=== PATIENT | female | born 1965 | race Caucasian/White ===

== ENCOUNTER 2017-09-25 07:04 | Emergency (ER) | payer OTHER ==
[2017-09-25 07:33] LABS: Bacteria/HPF Rare-Few HPF (None Seen); Bilirubin Negative (Negative); Blood, Urine Trace (Negative); Clarity Slightly Cloudy (Clear); Glucose, Urine (Dipstick) Negative (Negative); Hyaline Casts/LPF NONE SEEN LPF (0-3 Hyaline); Leukocyte Negative (Negative); Nitrite Negative (Negative); Protein, Urine (Dipstick) Negative (Neg-Trace); RBC/HPF 0-3 HPF (0-3); Squamous Epithelial 0-3 HPF (0-3); Urobilinogen 0.2 mg/dL (0.2-1.0); WBC/HPF 0-3 HPF (0-3)
--- NOTE | 2017-09-25 08:41 | ULT ---
ULTRASOUND RETROPERITONEUM COMPLETE: (RENAL) HISTORY: 52-year-old female with urinary tract infection, now with right flank pain. FINDINGS: Right kidney: 12.5 x 7 x 7 cm. Left kidney: 12.5 x 6.5 x 5.5 cm. There is a 3 cm cyst at the right upper-mid pole. There is a 2 cm cyst at the right lower pole. There is no hydronephrosis bilaterally. Urinary bladder volume is 100 mL pre-void, and 1 mL post-void. The bladder appears unremarkable. IMPRESSION: 1. No hydronephrosis. 2. Two right-sided renal cysts. 3. If there is concern for pyelonephritis, CT of the abdomen with contrast, or MRI of the abdomen wi th and without contrast, would be the most sensitive modalities (assuming there are no contraindicati ons). LEONELA Renee POS: CHAKA
[2017-09-25] MEDS ORDERED: Ketorolac Tromethamine 30 MG/ML VIAL ONE (08:46)
== END 2017-09-25 09:04 | disposition home or self-care (01) ==
LOC: SCSER 07:04
DX: S29.011A Strain of muscle and tendon of front wall of thorax, initial encounter (principal); Z87.442 Personal history of urinary calculi; Z79.899 Other long term (current) drug therapy; X58.XXXA Exposure to other specified factors, initial encounter
CPT/HCPCS: 76770; 81003; 81015; 96372; J1885

== ENCOUNTER 2018-09-06 14:07 | Outpatient (CLI) | payer OTHER | END 2018-09-06 14:08 | disposition home or self-care (01) | LOC: BICMAMMO 14:07 | PROVIDERS: ATTEND Internal Medicine | DX: Z12.31 Encounter for screening mammogram for malignant neoplasm of breast (principal); N63.10 Unspecified lump in the right breast, unspecified quadrant | CPT/HCPCS: 77063; 77067 ==

== ENCOUNTER 2018-09-11 13:01 | Outpatient (CLI) | payer OTHER ==
--- NOTE | 2018-09-11 14:45 | ULT ---
RIGHT BREAST ULTRASOUND: HISTORY: Abnormal mammogram. FINDINGS: Correlation is made with mammograms of today and 09/06/2018. The small focal nodular density noted on the initial mammogram is vaguely seen on the initial images today and likely corresponds to a 4 mm cyst at the 6 o'clock position of the right retroareolar breas t. IMPRESSION: BIRADS category 2 - benign findings. Return to annual mammographic screening. POS: OFF
== END 2018-09-11 13:02 | disposition home or self-care (01) ==
LOC: BICMAMMO 13:01
PROVIDERS: ATTEND Internal Medicine
DX: N63.14 Unspecified lump in the right breast, lower inner quadrant (principal)
CPT/HCPCS: G0279

== ENCOUNTER 2018-10-01 08:40 | Outpatient (CLI) | payer OTHER | END 2018-10-01 08:41 | disposition home or self-care (01) | LOC: DTY/OP 08:40 | PROVIDERS: ATTEND Surgery | DX: E66.01 Morbid (severe) obesity due to excess calories (principal) | CPT/HCPCS: 97802 ==

== ENCOUNTER 2018-10-24 13:40 | Outpatient (CLI) | payer OTHER | END 2018-10-24 13:41 | disposition home or self-care (01) | LOC: DTY/OP 13:40 | PROVIDERS: ATTEND Internal Medicine | DX: E66.01 Morbid (severe) obesity due to excess calories (principal) | CPT/HCPCS: 97802 ==

== ENCOUNTER 2018-11-29 14:56 | Outpatient (CLI) | payer OTHER | END 2018-11-29 14:57 | disposition home or self-care (01) | LOC: DTY/OP 14:56 | PROVIDERS: ATTEND Internal Medicine | DX: E66.01 Morbid (severe) obesity due to excess calories (principal) | CPT/HCPCS: 97802 ==

== ENCOUNTER 2019-01-17 15:38 | Outpatient (CLI) | payer OTHER | END 2019-01-17 15:39 | disposition home or self-care (01) | LOC: DTY/OP 15:38 | PROVIDERS: ATTEND Internal Medicine | DX: E66.01 Morbid (severe) obesity due to excess calories (principal) | CPT/HCPCS: 97802 ==

== ENCOUNTER 2019-02-19 09:51 | Outpatient (CLI) | payer OTHER ==
[2019-02-19 10:58] LABS: #Eosinphils 0.1 thou/uL (0.0-0.7); #Lymphocytes 1.9 thou/uL (1.20-3.40); #Monocytes 0.5 thou/uL (0.11-0.59); #Neutrophils 4.5 thou/uL (1.40-6.50); %Basophils 0.5 % (0.0-1.0); %Eosinophils 2.1 % (0.0-10.0); %Lymphocytes 26.7 % (21.0-51.0); %Neutrophils 63.6 % (42.0-75.0); Hemoglobin 13.9 g/dL (12.0-16.0); Mean Corpuscular HGB CONC 33.3 g/dL (32.0-36.0); Mean Corpuscular Hemoglobin 30.2 pg (27.0-31.0); Mean Corpuscular Volume 90.7 fL (78.0-98.0); Mean Platelet Volume 7.8 fL (7.4-10.4); Platelet Count 345 thou/uL (130-400); RBC Distribution Width 11.7 % (11.5-14.5); Red Blood Cell (RBC) Count 4.59 mill/uL (4.20-5.40); White Blood Cell (WBC) Count 7.1 thou/uL (4.8-10.8)
[2019-02-19 11:05] LABS: BHCG - Serum Negative (NEGATIVE); Pregs Control Background? CLEAR/WHITE (CLR/WHITE); Pregs Control Bar Appear? YES (CONTROL BAR)
[2019-02-19 11:14] LABS: Hemoglobin A1c 5.9 % (4.0-6.0)
[2019-02-19 11:22] LABS: ALT (SGPT) 51 U/L (8-55); AST (SGOT) 36 U/L (5-34); Albumin 4.5 g/dL (3.5-5.0); Alkaline Phosphatase 73 U/L (40-150); Anion Gap 12 mmol/L (10-20); BUN (Urea Nitrogen) 25 mg/dL (9.8-20.1); Bilirubin, Direct 0.3 mg/dL (0.1-0.3); Bilirubin, Total 0.7 mg/dL (0.2-1.2); Calc. Creatinine Clearance 0 mL/min (70-130); Calcium 9.6 mg/dL (7.8-10.44); Carbon Dioxide 22 mmol/L (22-29); Chloride 107 mmol/L (98-107); Estimated GFR-MDRD 83; Globulin 3.1 g/dL (2.4-3.5); Glucose 101 mg/dL (70-105); Potassium 4.1 mmol/L (3.5-5.1); Protein, Total 7.6 g/dL (6.0-8.3); Sodium 137 mmol/L (136-145)
--- NOTE | 2019-02-19 11:58 | RAD ---
2 VIEWS CHEST: Date: 02/19/19 PROVIDED CLINICAL HISTORY: Preop. FINDINGS: Cardiac and mediastinal silhouette is within normal limits. Lungs appear clear. No pleural fluid or p neumothorax apparent. IMPRESSION: No evidence for acute cardiopulmonary process. POS: OFF
== END 2019-02-19 09:52 | disposition home or self-care (01) ==
LOC: LABBT 09:51
PROVIDERS: ATTEND Surgery
DX: Z01.818 Encounter for other preprocedural examination (principal); E66.01 Morbid (severe) obesity due to excess calories
CPT/HCPCS: 71046; 80053; 80076; 83036; 84703; 85025

== ENCOUNTER 2019-02-19 14:00 | Inpatient (IN) | payer OTHER ==
[2019-02-28] MEDS ORDERED: Heparin 5,000 UNITS/ML VIAL ONE (07:42)
[2019-02-28] MEDS ORDERED: Bupivacaine/Epinephrine 0.25% 30 ML VIAL ONE (09:14)
[2019-02-28] MEDS ORDERED: Fentanyl 100 MCG/2 ML VIAL ONE ×4 (09:22→11:35)
[2019-02-28] MEDS ORDERED: Lidocaine 2% Jelly 5 ML TUBE ONE (09:22)
[2019-02-28] MEDS ORDERED: Promethazine HCl 25 MG/ML VIAL SLOW IVP PRN (10:46)
[2019-02-28] MEDS ORDERED: Promethazine HCl 25 MG/ML VIAL IM PRN ×3 (10:46→13:06)
[2019-02-28] MEDS ORDERED: Ondansetron HCl/PF 4 MG/2 ML Vial IVP PRN (10:46)
--- NOTE | 2019-02-28 11:34 | OP ---
DATE OF PROCEDURE: 02/28/2019 PREOPERATIVE DIAGNOSES: 1. Morbid obesity with a body mass index of 38. 2. Hypertension. POSTOPERATIVE DIAGNOSES: 1. Morbid obesity with a body mass index of 38. 2. Hypertension. 3. Hiatal hernia, paraesophageal. PROCEDURE PERFORMED: 1. Laparoscopic sleeve gastrectomy with [place] staple line reinforcements and 38-[place] bougie. 2. Laparoscopic repair of paraesophageal hernia without fundoplication. ANESTHESIA: General. ESTIMATED BLOOD LOSS: Minimal. COMPLICATIONS: None. FINDINGS: Hiatal hernia. DESCRIPTION OF PROCEDURE: The patient was taken to the operating room and laid supine on the operating room table. After general anesthetic was obtained, an OG tube was used to decompress the stomach. The arms and legs were double strapped to bariatric table. The abdomen was prepped and draped in the sterile fashion. Left subcostal 5 mm Optiview trocar was placed in the usual fashion. High-flow pneumoperitoneum was obtained. Left and right abdominal 12 mm ports as well as right subcostal 5 mm port were placed under direct visualization. A 5 mm incision was made at the xiphoid, and Merry was used to raise the liver off the GE junction. Short gastrics were taken down from mid body of the stomach to left [place] of diaphragm. Left [place] posterior fundus and angle of His were completely dissected revealing a paraesophageal hernia. Circumferential dissection of the esophagus was performed. The gastrohepatic ligament was opened. Short gastrics were taken down to a distance of 6 cm proximal to the pylorus. OG tube was removed and 38 bougie was brought in and its tip left in the antrum of the stomach. Multiple loads of an [place] stapling device were used to perform the sleeve. The first was a green load fired up at a distance of 6 cm proximal to the pylorus angled up towards the incisura. Care was taken to avoid being too close to the incisura. Multiple loads were then fired up along the bougie. Stomach was completely transected at the angle of His. The stomach was removed from the left abdominal incision. This fascial defect was closed using GraNee needle and 0 Vicryl tie. One Ethibond suture in tie knot system was used to close the posterior crura with the bougie present. Bougie was removed. There was no bleeding on the staple line. EGD scope was passed through the esophagus and stomach to the level of duodenum without obstruction. No stricture at the incisura. There was no stenosis at the diaphragmatic hiatus. Merry retractors removed under direct visualization without bleeding. All ports were removed without bleeding. Pneumoperitoneum was let down. Vicryl was used to close the fascial defect from the left abdominal incisions. All incisions were irrigated and closed using 4-0 Monocryl and Dermabond. The patient was sent to Recovery in stable condition. All instrument counts, needle counts, and lap counts were correct. Job ID: [id number]
[2019-02-28] MEDS ORDERED: HYDROmorphone 2 MG/ML VIAL ONE (11:44)
[2019-02-28] MEDS ORDERED: HYDROmorphone 2 MG/ML VIAL SLOW IVP PRN (11:48)
[2019-02-28] MEDS ORDERED: Zolpidem Tartrate 5 MG TAB PO PRN (11:49)
[2019-02-28] MEDS ORDERED: Fentanyl 20 mcg/ml (100 ml CADD) IV PRN (11:49)
[2019-02-28] MEDS ORDERED: fentaNYL Citrate/PF 2,000 MCG in Sodium Chloride 0.9% 60 ML IV PRN (11:49)
[2019-02-28] MEDS ORDERED: Ondansetron PF 4 MG/2 ML Vial IVP PRN ×2 (11:49→13:06)
[2019-02-28] MEDS ORDERED: diphenhydrAMINE 50 MG/ML VIAL IM PRN (11:49)
[2019-02-28] MEDS ORDERED: diphenhydrAMINE 25 MG CAP PO PRN (11:49)
[2019-02-28] MEDS ORDERED: diphenhydrAMINE 50 MG/ML VIAL IVP PRN ×2 (11:49→13:06)
[2019-02-28] MEDS ORDERED: Naloxone HCl 0.4 mg/ml Vial IV PRN (11:49)
[2019-02-28] MEDS ORDERED: Promethazine HCl 25 MG/ML VIAL ONE (11:53)
[2019-02-28] MEDS ORDERED: Communication Order-Pharmacy FS SCH (12:00)
[2019-02-28] MEDS ORDERED: hydrALAZINE 20 MG/ML VIAL SLOW IVP PRN (13:06)
[2019-02-28] MEDS ORDERED: Hydrocodone-Acetamin 15 ML UDCUP PO PRN (13:06)
[2019-02-28] MEDS ORDERED: Dextrose 50% Abboject 50 ML SYRINGE SLOW IVP PRN (13:06)
[2019-02-28] MEDS ORDERED: Dextrose 5% in Water 1,000 ML IV PRN (13:06)
[2019-02-28] MEDS: D5 1/2 NS w/20 mEq KCL 1,000 ML IV SCH ×2 (13:36→20:09)
[2019-02-28] MEDS: Acetaminophen 1,000 MG in Premix Bag 1 BAG IVPB SCH ×2 (13:37→20:02)
[2019-02-28] MEDS ORDERED: Enoxaparin Sodium 40 MG/0.4 ML SYRINGE SC SCH (21:00)
[2019-03-01] MEDS: Acetaminophen 1,000 MG in Premix Bag 1 BAG IVPB SCH ×2 (02:32→08:00)
[2019-03-01 05:14] LABS: #Lymphocytes 1.4 thou/uL (1.20-3.40); #Monocytes 0.5 thou/uL (0.11-0.59); #Neutrophils 9.2 thou/uL (1.40-6.50); %Basophils 0.3 % (0.0-1.0); %Lymphocytes 12.6 % (21.0-51.0); %Monocytes 4.5 % (0.0-10.0); %Neutrophils 82.6 % (42.0-75.0); Hemoglobin 12.7 g/dL (12.0-16.0); Mean Corpuscular HGB CONC 31.2 g/dL (32.0-36.0); Mean Corpuscular Hemoglobin 28.8 pg (27.0-31.0); Mean Corpuscular Volume 92.3 fL (78.0-98.0); Mean Platelet Volume 8.3 fL (7.4-10.4); Platelet Count 287 thou/uL (130-400); RBC Distribution Width 11.6 % (11.5-14.5); White Blood Cell (WBC) Count 11.1 thou/uL (4.8-10.8)
[2019-03-01] MEDS: D5 1/2 NS w/20 mEq KCL 1,000 ML IV SCH (05:26)
[2019-03-01 05:36] LABS: Anion Gap 9 mmol/L (10-20); BUN (Urea Nitrogen) 8 mg/dL (9.8-20.1); Calc. Creatinine Clearance 0 mL/min (70-130); Calcium 9.2 mg/dL (7.8-10.44); Carbon Dioxide 23 mmol/L (22-29); Chloride 107 mmol/L (98-107); Estimated GFR-MDRD Greater than 90; Glucose 158 mg/dL (70-105); Potassium 4.1 mmol/L (3.5-5.1); Sodium 135 mmol/L (136-145)
--- NOTE | 2019-03-01 07:56 | PDOC.GSPN ---
Surgery Progress Note: Subj - Subjective Patient reports: no new complaints, pain well controlled (Currently is 10/28. Pain has shifted from incisional to a band-like sore abdominal pain. Overall, is well controlled. 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 Otherwise, IV tylenol controls the pain.), tolerating liquids well ( She had four cups of broth and some jello overnight and tolerated it well.), voiding w/o difficulty (Urinated several times throughout the night.), no bowel movement, no flatus Surgery Progress Note: Obj - Vital signs Vital signs: Vital Signs - Most Recent Temp Pulse Resp BP Pulse Ox 98.6 F 86 18 134/69 93 L 03/01/19 04:33 03/01/19 04:33 03/01/19 04:33 03/01/19 04:33 03/01/19 04:33 - Physical Exam General: no distress, well nourished Cardiovascular: regular rate and rhythm Respiratory: clear to auscultation, normal expansion, normal respiratory effort , breath sounds present Abdomen: soft, decreased bowel sounds, appropriately tender Wound: dressing clean,dry,intact (Laparascopic incisions are not indurated or warm and appear to be healing well.), healing well Surgery Progress Note: Results - Labs Result Diagrams: 03/01/19 04:47 03/01/19 04:47 Lab results: Laboratory Results - last 24 hr 03/01/19 03/01/19 04:47 04:47 WBC 11.1 H RBC 4.40 Hgb 12.7 Hct 40.7 MCV 92.3 MCH 28.8 MCHC 31.2 L RDW 11.6 Plt Count 287 MPV 8.3 Neutrophils % 82.6 H Lymphocytes % 12.6 L Monocytes % 4.5 Eosinophils % 0.0 Basophils % 0.3 Neutrophils # 9.2 H Lymphocytes # 1.4 Monocytes # 0.5 Eosinophils # 0.0 Basophils # 0.0 Sodium 135 L Potassium 4.1 Chloride 107 Carbon Dioxide 23 Anion Gap 9 L BUN 8 L Creatinine 0.68 Estimated GFR (MDRD) Greater than 90 Glucose 158 H Calcium 9.2 Surgery Progress Note: A/P - Plan Plan: Patient is post-op day 1 for a laparascopic sleeve gastrectomy. Her pain is well controlled with a WINDOWS [employer]STRUCTURE ENGINEER and IV tylenol. She is ambulating with no hoang, and has voided several times through the night. No bowel movement or flatus yet, but she is tolerating clear liquids well. Plan- 1. Advance to full liquid diet this pm if patient continues to tolerate clear liquids. 2. Wean off of the WINDOWS INFRASTRUCTURE ENGINEER in favor of IV tylenol when patient is able to ambulate without the need for the WINDOWS INFRASTRUCTURE ENGINEER.
[2019-03-01] MEDS ORDERED: Pantoprazole 40 MG VIAL IVP SCH (09:00)
[2019-03-01] MEDS ORDERED: Losartan 25 MG TAB PO SCH (09:00)
[2019-03-01] MEDS ORDERED: Hydrocodone-Acetamin 15 ML UDCUP PO PRN (11:02)
--- NOTE | 2019-03-01 11:34 | DIS ---
DATE OF ADMISSION: 02/28/2019 DATE OF DISCHARGE: 02/28/2019 ADMITTING DIAGNOSIS: Morbid obesity. DISCHARGE DIAGNOSES: Morbid obesity plus hiatal hernia. PROCEDURES PERFORMED: Laparoscopic sleeve and hiatal hernia repair by Dr. Rodriguez without complication. CONDITION ON DISCHARGE: Improved. STAFF: Lyle Rodriguez MD HOSPITAL COURSE: On postop day 1, the patient is doing well. She is hemodynamically stable. Her vital signs are stable. She is tolerating the liquids. She is ambulatory. Her wounds are clear. She is discharged home. She will follow up with me in the office in 2 weeks. Job ID: [id number]
[2019-03-01 11:38] VITALS: BP 160/88; TEMP 98.5
== END 2019-03-01 12:05 | disposition home or self-care (01) | DRG 621 ==
LOC: SURG A 02-28 07:17
PROVIDERS: ADMIT Surgery; ATTEND Surgery
PROC: 0DB64Z3 Excision of Stomach, Percutaneous Endoscopic Approach, Vertical (ICD-10-PCS; principal; 2019-02-28)
PROC: 0BQT4ZZ Repair Diaphragm, Percutaneous Endoscopic Approach (ICD-10-PCS; 2019-02-28)
PROC: 0DJ08ZZ Inspection of Upper Intestinal Tract, Via Natural or Artificial Opening Endoscopic (ICD-10-PCS; 2019-02-28)
DX: E66.01 Morbid (severe) obesity due to excess calories (principal); I10 Essential (primary) hypertension; K44.9 Diaphragmatic hernia without obstruction or gangrene; Z68.38 Body mass index [BMI] 38.0-38.9, adult
CPT/HCPCS: 36415; 80048; 85025; 88307; 88312; 94760; C9113; J0131; J0690; J1170; J1644; J1650; J2550; J3010; J3490

== ENCOUNTER 2022-03-22 13:54 | Outpatient (CLI) | payer BC | END 2022-03-22 13:55 | disposition home or self-care (01) | LOC: LABBT 13:54 | PROVIDERS: ATTEND Urology | DX: Z20.822 Contact with and (suspected) exposure to COVID-19 (principal) | CPT/HCPCS: 87811 ==

== ENCOUNTER 2022-03-25 05:56 | Day surgery (SDC) | payer BC ==
[2022-03-23 12:07] VITALS: BMI 30.7
[2022-03-25] MEDS ORDERED: Lidocaine 1% MPF 2 ML VIAL ONE (06:14)
[2022-03-25] MEDS ORDERED: fentaNYL Citrate/PF 100 MCG/2 ML SYRINGE ONE (06:37)
[2022-03-25] MEDS ORDERED: cefTRIAXone\\ROCEPHIN 2 GM VIAL ONE (06:57)
[2022-03-25] MEDS ORDERED: Sodium Chloride 0.9% 100 ML ONE (06:57)
[2022-03-25] MEDS ORDERED: Iopamidol 15 ML ONE (07:02)
[2022-03-25] MEDS ORDERED: HYDROmorphone 0.5 MG/0.5 ML SYRINGE ONE (07:16)
[2022-03-25] MEDS ORDERED: Scopolamine 1.5 mg/72 hour Patch ONE (07:28)
[2022-03-25] MEDS ORDERED: Lidocaine 1% PF 5 ML VIAL ONE (07:45)
[2022-03-25] MEDS ORDERED: Ketorolac Tromethamine 30 MG/ML VIAL ONE (07:45)
[2022-03-25] MEDS ORDERED: ePHEDrine 50 MG/ML VIAL ONE (07:45)
[2022-03-25] MEDS ORDERED: Phenylephrine 10 MG/ML VIAL ONE (07:45)
[2022-03-25] MEDS ORDERED: PROPOFOL 200 MG/20 ML VIAL ONE (07:45)
[2022-03-25] MEDS ORDERED: Ondansetron PF 4 MG/2 ML Vial ONE (07:45)
[2022-03-25] MEDS ORDERED: Dexamethasone 20 MG/5 ML VIAL ONE (07:45)
[2022-03-25] MEDS ORDERED: B & O ONE (08:57)
[2022-03-25] MEDS ORDERED: Fentanyl 100 MCG/2 ML VIAL ONE (09:58)
[2022-03-25] MEDS ORDERED: Phenazopyridine HCl 100 MG TAB ONE (10:21)
[2022-03-25] MEDS ORDERED: HYDROcodone/Acetaminophen 5/325 mg Tablet ONE (11:15)
== END 2022-03-25 11:50 | disposition home or self-care (01) ==
LOC: SDC 05:56
PROVIDERS: ATTEND Urology
PROC: 0TC48ZZ Extirpation of Matter from Left Kidney Pelvis, Via Natural or Artificial Opening Endoscopic (ICD-10-PCS; principal; 2022-03-25)
PROC: 0TC78ZZ Extirpation of Matter from Left Ureter, Via Natural or Artificial Opening Endoscopic (ICD-10-PCS; principal; 2022-03-25)
PROC: 0T778DZ Dilation of Left Ureter with Intraluminal Device, Via Natural or Artificial Opening Endoscopic (ICD-10-PCS; principal; 2022-03-25)
DX: N20.2 Calculus of kidney with calculus of ureter (principal); Z88.8 Allergy status to other drugs, medicaments and biological substances
CPT/HCPCS: 74420; 82365; 88300; C2617; J0696; J1170; J3010; J3490; Q9967